=== PATIENT | male | born 1990 | race Caucasian/White ===

== ENCOUNTER 2016-09-18 15:00 | Outpatient (CLI) | payer BC, MEDICAID ==
[~2016-09-18] VITALS: Ht 180.3 cm; Wt 79.1 kg
[2016-09-18 15:05] VITALS: BP 135/77; PULSE 109; RESP 20; Ht 180.3 cm; Wt 79.1 kg
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
== END 2016-09-18 16:46 | disposition home or self-care (01) ==
LOC: HPC 15:00
PROVIDERS: ATTEND Transplant Surgery
DX: S06.9X0D Unspecified intracranial injury without loss of consciousness, subsequent encounter (principal); N39.0 Urinary tract infection, site not specified; J18.9 Pneumonia, unspecified organism
CPT/HCPCS: G0463